=== PATIENT | male | born 1960 | race Caucasian/White ===

== ENCOUNTER 2017-09-21 14:06 | Inpatient (IN) ==
[2017-09-21] MEDS ORDERED: Ipratropium/Albuterol Neb 3 ML IH ONE (14:09)
--- NOTE | 2017-09-21 14:12 | Emergency Department Note ---
Disposition Clinical Impression: Community acquired pneumonia Qualifiers: Laterality: right Lung location: unspecified part of lung Qualified Code(s): J18.9 - Pneumonia, unspecified organism Disposition: Admitted As Inpatient Condition: Fair Referrals: Bud Nunez Jr, MD [Primary Care Provider] - Forms: ED Satisfaction Letter Time of Disposition: 15:28 SOB HPI - General Chief Complaint: ED Shortness of Breath/Dyspnea Stated Complaint: JEREMIAH Time Seen by Provider: 09/21/17 14:09 Source: patient, EMS Mode of arrival: EMS Limitations: no limitations Nursing Notes Reviewed: Yes Vital Signs Reviewed: Yes - History of Present Illness 56-year-old male who complains of increasing shortness of breath. Patient has a history of stage IV lung cancer with metastases to the liver. Patient is followed at the [facility]. Pt Subjective Complaint: shortness of breath Onset (ago): day(s) (3) Context: other (Street lung cancer) Worsens with: exertion Known history of: other (Cancer) Associated symptoms: Denies: chest pain, syncope Treatment prior to arrival: none - Related Data Home Medications Medication Instructions Recorded Confirmed Alprazolam [Alprazolam Xr] 0.5 mg PO Q4HR PRN 06/08/17 06/08/17 Aspirin [Lo-Dose Aspirin EC] 81 mg PO DAILY 06/08/17 06/08/17 Carvedilol 12.5 mg PO BID 06/08/17 06/08/17 Cyclobenzaprine [Flexeril] 10 mg PO HS 06/08/17 06/08/17 Morphine Sulfate [Arymo ER] 30 mg PO BID 06/08/17 06/08/17 Multivitamin [One Daily Essential] 1 each PO DAILY 06/08/17 06/08/17 Nabumetone 750 mg PO BID 06/08/17 06/08/17 OxyCODONE Immed Rel [Roxicodone 15 15 mg PO Q6HR PRN 06/08/17 06/08/17 MG] Simvastatin [Zocor] 40 mg PO HS 06/08/17 06/08/17 Allergies Allergy/AdvReac Type Severity Reaction Status Date / Time ceftriaxone [From Rocephin] Allergy Hives Verified 06/08/17 21:10 codeine Allergy Hives Verified 06/08/17 21:10 All systems ED: reviewed and negative except as stated. Constitutional: Denies: fever, chills, weakness, weight change Eyes: Denies: eye pain, eye discharge, vision change ENT ED: Denies: ear pain, throat pain, dental pain, hearing loss, epistaxis, congestion, dysphagia Cardiovascular: Denies: chest pain, palpitations, dyspnea on exertion, edema, syncope Respiratory: Reports: cough, dyspnea. Denies: wheezes, hemoptysis, stridor Gastrointestinal: Denies: abdominal pain, nausea, vomiting, diarrhea, constipation, hematemesis, melena, hematochezia Genitourinary: Denies: urgency, dysuria, frequency, hematuria Musculoskeletal: Denies: back pain, neck pain, arthralgia, myalgia Integumentary: Denies: rash, abrasion, lesions Neurological: Denies: headache, weakness, numbness, paresthesias, confusion, abnormal gait, vertigo Psychiatric: Denies: anxiety, depression, suicidal thoughts, homicidal thoughts , auditory hallucinations, visual hallucinations Endocrine: Denies: fatigue Hematological/Lymphatic: Denies: easy bleeding, easy bruising Allergic/Immunologic: Denies: facial swelling, urticaria Past Medical History - Past Medical History Medical history: Reports: hyperlipidemia, hypertension, myocardial infarction Psychiatric history: Reports: no psych history - Social History Smoking Status: Current every day smoker Smokeless Tobacco Status: No Alcohol use: Reports: rarely Drug use: Reports: marijuana Physical Exam - General Limitations: no limitations General appearance: alert, in no apparent distress - Head Head exam: atraumatic, normocephalic, normal inspection - Eye Eye exam: Present: normal appearance, PERRL, EOMI - Expanded Eye Exam Pupils: Left: reactive - ENT ENT exam: normal exam, normal oropharynx, mucous membranes moist - Expanded ENT Exam External ear exam: Present: normal external inspection Mouth exam: Present: normal external inspection Teeth exam: Present: normal inspection Throat exam: Present: normal inspection - Neck Neck exam: Present: normal inspection, full ROM, trachea midline - Chest Chest inspection: Present: normal inspection, symmetric chest wall rise - Respiratory Respiratory exam: Present: normal lung sounds bilaterally - Cardiovascular Cardiovascular exam: Present: regular rate, normal rhythm, normal heart sounds - Abdominal Exam Abdominal exam: Present: soft, Non-Tender. Absent: tenderness, distention, guarding, rebound, rigidity - Extremities Exam Extremities exam: Present: normal inspection, full ROM. Absent: tenderness, pedal edema - Expanded Upper Extremity Exam Shoulder exam: Present: normal inspection, full ROM Arm exam: Present: normal inspection, full ROM Elbow exam: Present: normal inspection, full ROM Forearm/Wrist exam: Present: normal inspection, full ROM Hand exam: Present: normal inspection, full ROM Vascular exam: Normal: capillary refill, radial pulse - Expanded Lower Extremity Exam Hip/Pelvis exam: Present: normal inspection, full ROM Upper leg exam: Present: normal inspection, full ROM Knee exam: Present: normal inspection, full ROM Lower leg exam: Present: normal inspection, full ROM Ankle exam: Present: normal inspection, full ROM Foot/toe exam: Present: normal inspection, full ROM Neurovascular/Tendon exam: Absent: motor deficit, sensory deficit, tendon deficit - Back Exam Back exam: Present: normal inspection, full ROM. Absent: tenderness - Neurological Exam Neurological exam: Present: alert, oriented X3 - Expanded Neurological Exam Patient oriented to: Present: person, place, time Coma Scale Eye Opening: Spontaneous Coma Scale Motor Response: Obeys Commands Coma Scale Verbal Response: Oriented Coma Scale Total: 15 - Psychiatric Psychiatric exam: Present: normal affect, normal mood - Skin Skin exam: Present: warm, dry, intact, normal color Course Vital Signs Temperature 98.6 F 09/21/17 14:07 Pulse Rate 80 09/21/17 14:07 Respiratory Rate 18 09/21/17 14:07 Blood Pressure 153/93 09/21/17 14:07 O2 Sat by Pulse Oximetry 89 09/21/17 14:07 Temperature 98.6 F 09/21/17 14:07 Pulse Rate 75 09/21/17 15:58 Respiratory Rate 17 09/21/17 15:58 Blood Pressure 149/96 09/21/17 15:58 O2 Sat by Pulse Oximetry 94 09/21/17 15:58 Oxygen Delivery Oxygen Delivery Simple Mask Shortness of Breath/Dyspnea - Lab Data Lab results reviewed: Yes I reviewed the patient's lab results. Result diagrams: 09/21/17 14:38 09/21/17 14:38 Lab Results 09/21/17 09/21/17 09/21/17 Range/Units 14:38 14:38 14:38 WBC 14.1 H (4.3-11.1) K/mcL RBC 2.90 L (4.19-5.50) M/mcL Hgb 9.7 L (12.9-16.9) g/dL Hct 31.7 L (37.5-50.1) % MCV 109.3 H (83.0-100.0) fL MCH 33.4 H (28.0-33.3) pg MCHC 30.6 L (31.6-35.5) g/dL RDW 22.3 H (11.5-14.5) % Plt Count 82 L (140-400) K/mcL MPV 10.4 (9.4-12.4) fL Immature Gran % 4.2 H (0-4) % Seg Neutrophils % 79.4 % Lymphocytes % 10.3 % Monocytes % 5.7 % Eosinophils % 0.0 % Basophils % 0.4 % Neutrophils # 11.2 H (1.6-8.9) K/mcL Lymphocytes # 1.5 (0.6-4.6) K/mcL Monocytes # 0.8 (0.0-1.3) K/mcL Eosinophils # 0.0 (0.0-0.6) K/mcL Basophils # 0.1 (0.0-0.2) K/mcL Nucleated RBCs/100 WBC 1.2 H (0) /100 WBC Platelet Estimate Decreased L (Normal) Immature Plt Fraction 7.8 H (1.1-6.1) % Polychromasia 1+ A (Not Present) Anisocytosis 2+ A (Not Present) Tear Drop Cells 1+ A (Not Present) Sodium 134 L (136-145) mEq/L Potassium 3.4 L (3.5-4.5) mEq/L Chloride 95 L (98-109) mEq/L Carbon Dioxide 27 (19-29) mEq/L BUN 12 (8-26) mg/dL Creatinine 0.59 L (0.72-1.25) mg/dL Est GFR ( Amer) > 60 (> 60) Est GFR (Non-Af Amer) > 60 (> 60) BUN/Creatinine Ratio 20 (6-26) Glucose 328 H (70-99) mg/dL Calculated Osmolality 291 (280-300) Lactic Acid 2.1 (0.5-2.2) mmol/L Calcium 8.4 L (8.6-10.8) mg/dL Troponin I (0-0.03) ng/mL B-Natriuretic Peptide (0-100) pg/mL 09/21/17 09/21/17 Range/Units 14:38 14:38 WBC (4.3-11.1) K/mcL RBC (4.19-5.50) M/mcL Hgb (12.9-16.9) g/dL Hct (37.5-50.1) % MCV (83.0-100.0) fL MCH (28.0-33.3) pg MCHC (31.6-35.5) g/dL RDW (11.5-14.5) % Plt Count (140-400) K/mcL MPV (9.4-12.4) fL Immature Gran % (0-4) % Seg Neutrophils % % Lymphocytes % % Monocytes % % Eosinophils % % Basophils % % Neutrophils # (1.6-8.9) K/mcL Lymphocytes # (0.6-4.6) K/mcL Monocytes # (0.0-1.3) K/mcL Eosinophils # (0.0-0.6) K/mcL Basophils # (0.0-0.2) K/mcL Nucleated RBCs/100 WBC (0) /100 WBC Platelet Estimate (Normal) Immature Plt Fraction (1.1-6.1) % Polychromasia (Not Present) Anisocytosis (Not Present) Tear Drop Cells (Not Present) Sodium (136-145) mEq/L Potassium (3.5-4.5) mEq/L Chloride (98-109) mEq/L Carbon Dioxide (19-29) mEq/L BUN (8-26) mg/dL Creatinine (0.72-1.25) mg/dL Est GFR ( Amer) (> 60) Est GFR (Non-Af Amer) (> 60) BUN/Creatinine Ratio (6-26) Glucose (70-99) mg/dL Calculated Osmolality (280-300) Lactic Acid (0.5-2.2) mmol/L Calcium (8.6-10.8) mg/dL Troponin I 0.00 (0-0.03) ng/mL B-Natriuretic Peptide 114 H (0-100) pg/mL - Radiology Data Radiology results reviewed: Yes I reviewed the patient's radiology results. Chest X-Ray 11/26/17 14:09 IMPRESSION: Findings as above concerning for infection. Small to moderate pleural effusion. D/ / Vida Geller MD / Vida Geller MD Interpreting Provider: Vida Geller MD - EKG Data EKG attestation: Yes I reviewed and interpreted this EKG. EKG shows normal: Reports: sinus rhythm Rate: Reports: normal Rhythm: Reports: NSR When compared to previous EKG there are: no significant changes (Unchanged from 06/08/2017) Interpretation: Reports: no acute changes
[2017-09-21 14:45] LABS: Basophils % 0.4 %; Red Cell Distribution Width 22.3 % (11.5-14.5)
[2017-09-21 14:47] LABS: Basophils # 0.1 K/mcL (0.0-0.2); Hematocrit 31.7 % (37.5-50.1); Hemoglobin 9.7 g/dL (12.9-16.9); Immature Granulocytes % 4.2 % (0-4); Immature Platelets 7.8 % (1.1-6.1); Lymphocytes # 1.5 K/mcL (0.6-4.6); Lymphocytes % 10.3 %; Mean Corpuscular HGB Conc 30.6 g/dL (31.6-35.5); Mean Corpuscular Hemoglobin 33.4 pg (28.0-33.3); Mean Corpuscular Volume 109.3 fL (83.0-100.0); Mean Platelet Volume 10.4 fL (9.4-12.4); Monocytes # 0.8 K/mcL (0.0-1.3); Monocytes % 5.7 %; Neutrophils # 11.2 K/mcL (1.6-8.9); Nucleated Red Blood Cells 1.2 /100 WBC (0); Segmented Neutrophils % 79.4 %
[2017-09-21 14:58] LABS: BUN/Creatinine Ratio 20 (6-26); Blood Urea Nitrogen 12 mg/dL (8-26); Calcium 8.4 mg/dL (8.6-10.8); Carbon Dioxide 27 mEq/L (19-29); Chloride 95 mEq/L (98-109); Glucose 328 mg/dL (70-99); Osmolality,Calculated 291 (280-300); Potassium 3.4 mEq/L (3.5-4.5); Sodium 134 mEq/L (136-145); eGFR For African Americans > 60 (> 60); eGFR For Non-African Americans > 60 (> 60)
[2017-09-21 15:08] LABS: Platelet Count 82 K/mcL (140-400)
[2017-09-21 15:10] LABS: Anisocytosis 2+ (Not Present); Platelet Estimate Decreased (Normal)
[2017-09-21 15:11] LABS: Polychromasia 1+ (Not Present); Tear Drop Cells 1+ (Not Present)
[2017-09-21] MEDS ORDERED: Levofloxacin 750 MG/150 ML 750 MG/150 ML BAG IVPB STA (15:28)
--- NOTE | 2017-09-21 17:34 | Internal Med History&Physical ---
Date of Encounter: 09/21/17 Time of Encounter: 17:26 Assessment and Plan (1) Community acquired pneumonia Current visit: Yes Status: Acute Patient presented to ER with productive cough, WBC was elevated, chest x-ray shows right diffuse airspace disease. He has history of lung cancer mainly the right side, likely obstructive pneumonia. His last admission was May 2017. We will cover was Zosyn and levaquin Qualifiers: Laterality: right Lung location: unspecified part of lung Qualified Code( s): J18.9 - Pneumonia, unspecified organism (2) Leg swelling Current visit: Yes Status: Acute Patient has severe bilateral leg swelling, he has active lung cancer, will check a Doppler to rule out DVT. He also has CAD supposed to have echocardiogram as outpatient. we will order echocardiogram to rule out heart failure. (3) Stage 4 lung cancer Current visit: Yes Status: Chronic Follow-up at [facility] Qualifiers: Laterality: right Qualified Code(s): C34.91 - Malignant neoplasm of unspecified part of right bronchus or lung (4) CAD (coronary artery disease) Current visit: Yes Status: Chronic Patient had MRI state opposes stents placement in 2010, continue home medications Qualifiers: Coronary Disease-Associated Artery/Lesion type: [place] artery [place] vs. transplanted heart: [place] heart Associated angina: without angina Qualified Code(s): I25.10 - Atherosclerotic heart disease of [place] coronary artery without angina pectoris (5) Hypertension Current visit: Yes Status: Chronic BP is well controlled continue home medication Qualifiers: Hypertension type: essential hypertension Qualified Code(s): I10 - Essential (primary) hypertension (6) Hypokalemia Current visit: Yes Status: Acute We will replace by IV and oral follow-up tomorrow a.m. Internal Medicine - H&P: HPI Chief complaint: SOB Admitted From: Emergency Dept Plans for Post Hospital Care: Transfer [facility] Facility History of present illness: Mr. Verma is a 56 year old male who has history of lung cancer, hypertension hyperlipidemia, CAD status post stents, presenting emergency room for shortness of breath, productive cough chest pain for few days. Patient was diagnosed stage IV lung cancer on 06/08/2017 he has been seen by [facility]. He received a chemotherapy 4 weeks ago. Patient developed shortness of breath and the productive cough 4 days ago and he become extremely weak and had bilateral leg swellings. He also c/o chest pains located in the mid of chest, sharp 5 out of 10, constant. He denies fever or chills. He emergency room, he was find hypoxia 86% on room air. No temperature was documented. Chest x-ray showed scattered patchy airspace disease throughout the right long. Patient last admission was May 2017. Ongoing chemotherapy. In setting of stage IV lung cancer. We will treat as obstructive pneumonia, with Zosyn and levaquin. Past Med Surg Social Fam HX - Past Medical History Medical history: hyperlipidemia, hypertension, myocardial infarction Psychiatric history: no psych history - Social History Smoking Status: Former smoker Smokeless Tobacco Status: No Alcohol use: rarely Drug use: marijuana Internal Medicine - H&P: Meds Alprazolam [Alprazolam Xr] 0.5 mg PO Q4HR PRN 06/08/17 [History] Aspirin [Lo-Dose Aspirin EC] 81 mg PO DAILY 06/08/17 [History] Carvedilol 12.5 mg PO BID 06/08/17 [History] Cyclobenzaprine [Flexeril] 10 mg PO BID 06/08/17 [History] Morphine Sulfate [Arymo ER] 30 mg PO TID 06/08/17 [History] Multivitamin [One Daily Essential] 1 tab PO DAILY 06/08/17 [History] Nabumetone 750 mg PO BID 06/08/17 [History] OxyCODONE Immed Rel [Roxicodone 15 MG] 15 mg PO Q3H PRN 06/08/17 [History] Simvastatin [Zocor] 40 mg PO HS 06/08/17 [History] Lisinopril-HCTZ 10-12.5 [Prinzide 10-12.5] 1 tab PO DAILY 09/21/17 [History] 3 Allergy/AdvReac Type Severity Reaction Status Date / Time ceftriaxone [From Rocephin] Allergy Hives Verified 06/08/17 21:10 codeine Allergy Hives Verified 06/08/17 21:10 All Systems PM: A 10-system review of systems was performed and is negative for pertinent findings except as documented above in the HPI. - Constitutional Constitutional: anorexia, weakness - EENT Eyes: no change in vision, no discharge, no pain, no photophobia Ears: no ear discharge, no ear pain, no tinnitus Nose, mouth and throat: no dysphagia, no nasal discharge, no neck pain, no sore throat - Cardiovascular Cardiovascular ROS IM: no chest pain, no diaphoresis, no dyspnea, no lightheadedness, no palpitations, no syncope - Respiratory Respiratory: cough, dyspnea, excessive phlegm production, pain with cough - Gastrointestinal Gastrointestinal: no abdominal pain, no diarrhea, no hematemesis, no hematochezia, no melena, no nausea, no vomiting - Genitourinary Genitourinary ROS male: as per HPI - Musculoskeletal Musculoskeletal ROS IM: muscle weakness, no numbness, no tingling - Integumentary Integumentary IM: no rash, no unusual bruising - Neurological Neurological ROS: no confusion, no convulsions, no focal weakness, no numbness, no tingling, no tremor(s) - Psychiatric Additional comments: normal mood, denies sucidal - Endocrine Endocrine IM: fatigue - Hematologic/Lymphatic Hematologic/Lymphatic: no easy bruising - Constitutional Vitals: Temp Pulse Resp BP Pulse Ox 98.6 F 88 18 151/97 94 09/21/17 14:07 09/21/17 17:07 09/21/17 17:07 09/21/17 17:07 09/21/17 17:07 CONSTITUTIONAL: Patient appears as an age appropriate male well developed, in no acute distress. EYES Clear sclerae, bilateral pupils are equal, reactive to light and accommodation. Extraocular movements are intact RESPIRATORY: No accessory muscle use, right lung has diffuse crackles/rales. CARDIOVASCULAR: Regular heart rate, normal S1 and S2, no murmurs GASTROINTESTINAL: bowel sounds present, soft, no tenderness. No hepatosplenomegaly. No bilateral CVA tenderness MUSCULOSKELETAL: Joints in normal range of motion, no clubbing, ++++ edema, no cyanosis. Bilateral peripheral pulses 2+ LYMPHATIC no lymphadenopathy in neck, groin and axilla bilaterally, no thyromegaly. NEUROLOGIC: CN II to XII are grossly intact, no focal neurological deficit. Deep tendon reflexes 2+ bilaterally. Normal light touch sensation to upper and lower extremity PSYCHIATRIC: Oriented x3, with good insight, mood is euthymic. No hallucinations or delusions. SKIN: Skin warm and dry, no rashes, no open wound. Internal Med - H&P Results - Labs CBC & Chem 7: 09/21/17 14:38 09/21/17 14:38
[2017-09-21] MEDS ORDERED: Acetaminophen 325 MG TABLET PO PRN (17:53)
[2017-09-21] MEDS ORDERED: *HR* OxyCODONE/APAP 5/325 TABLET PO ONE (19:00)
[2017-09-21] MEDS: *HR* OxyCODONE Immed Rel 15 MG TABLET PO PRN (21:36)
[2017-09-21] MEDS: Aspirin Enteric Coated 81 MG Tablet PO SCH (22:16)
[2017-09-21] MEDS ORDERED: ALPRAZolam 0.5 MG TABLET PO PRN (22:40)
[2017-09-22 03:16] LABS: Hematocrit 30.9 % (37.5-50.1); Hemoglobin 9.4 g/dL (12.9-16.9); Immature Platelets 6.7 % (1.1-6.1); Mean Corpuscular HGB Conc 30.4 g/dL (31.6-35.5); Mean Corpuscular Hemoglobin 33.3 pg (28.0-33.3); Mean Corpuscular Volume 109.6 fL (83.0-100.0); Mean Platelet Volume 11.6 fL (9.4-12.4); Red Blood Count 2.82 M/mcL (4.19-5.50); Red Cell Distribution Width 22.1 % (11.5-14.5)
[2017-09-22 03:30] LABS: BUN/Creatinine Ratio 21 (6-26); Blood Urea Nitrogen 11 mg/dL (8-26); Calcium 8.7 mg/dL (8.6-10.8); Carbon Dioxide 30 mEq/L (19-29); Chloride 95 mEq/L (98-109); Glucose 267 mg/dL (70-99); Osmolality,Calculated 289 (280-300); Sodium 135 mEq/L (136-145); eGFR For African Americans > 60 (> 60); eGFR For Non-African Americans > 60 (> 60)
[2017-09-22 04:29] LABS: Potassium 3.2 mEq/L (3.5-4.5)
[2017-09-22] MEDS: *HR* OxyCODONE Immed Rel 15 MG TABLET PO PRN ×3 (05:57→16:25)
[2017-09-22] MEDS: Aspirin Enteric Coated 81 MG Tablet PO SCH (09:42)
[2017-09-22] MEDS: Multivit/Ca/Min/Fe/FA 1 TAB TABLET PO SCH (09:49)
[2017-09-22] MEDS: Levofloxacin 750 MG/150 ML 750 MG/150 ML BAG IVPB SCH (09:50)
--- NOTE | 2017-09-22 11:31 | Electrocardiograph Report ---
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
[2017-09-22] MEDS ORDERED: D5% in Water 1,000 ML IVC PRN (11:41)
[2017-09-22] MEDS ORDERED: *HR* Dextrose 50 % in Water (Syg) 50 ML SYRINGE IVP PRN (11:41)
[2017-09-22] MEDS ORDERED: Dextrose Gel 15 GM PO PRN ×2 (11:41)
[2017-09-22 12:31] LABS: Hemoglobin A1C 9.4 %
[2017-09-22] MEDS: *HR* Enoxaparin 40 MG/0.4 ML SYRINGE SQ SCH (13:36)
[2017-09-22] MEDS: *HR* Morphine Sulfate SR (12 HR) 30 MG TABLET.ER PO SCH ×3 (13:36→20:48)
--- NOTE | 2017-09-22 13:37 | Palliative - Consult Note ---
<Madhu Mcarthur - Last Filed: 09/22/17 13:33> Date of Encounter: 09/22/17 Time of Encounter: 13:33 - Assessment and Plan (1) Counseling regarding advanced directives and goals of care Current Visit: Yes Status: Acute Assessment and plan: - Likely discussion with patient regarding goals of care and CODE STATUS - Patient states that he would like to be DNR CCA DNI - Sons are present at bedside and state that he has been very clear about this decision - Patient has a medical power of divorce attorney and his , who is not present at bedside at this time - Living will in place. - Patient's goals of care at this hospital visit our treatment with antibiotics and supplemental oxygen - All questions from patient and family were answered at time of interview (2) Community acquired pneumonia Current Visit: Yes Status: Acute Assessment and plan: - Patient reports fevers, chills, productive cough - Chest x-ray showing right-sided patchy opacities suggestive of possible infection - Further management per primary team - Shortness of breath under control per patient. Speaking in full sentences at time of interview on room air Qualifiers: Laterality: right Lung location: unspecified part of lung Qualified Code( s): J18.9 - Pneumonia, unspecified organism (3) Stage 4 lung cancer Current Visit: Yes Status: Chronic Assessment and plan: - Patient receiving active chemotherapy at the [facility] - CODE STATUS and goals of care as outlined above Qualifiers: Laterality: right Qualified Code(s): C34.91 - Malignant neoplasm of unspecified part of right bronchus or lung (4) Hypertension Current Visit: Yes Status: Chronic Assessment and plan: - Elevated at time of admission in 160s systolic - Management per primary team Qualifiers: Hypertension type: essential hypertension Qualified Code(s): I10 - Essential (primary) hypertension Palliative-CN HPI - Data of Consult Patient: new to practice Consult date: 09/22/17 Requesting Physician: Jayro Rendon Primary Care Provider: Bud Nunez Jr, MD - Consult Narrative Palliative Care/Comfort Measures: Palliative care Reason for consult: Code status History of present illness: Mr. Verma is a 56 year old male with past medical history of stage IV lung cancer presented to emergency room with chief complaint of shortness of breath, productive cough, fevers, chills. He was admitted for pneumonia. Family is present in the room, including sons, during time of interview. Palliative care was consulted for further clarification on his CODE STATUS. Patient states that in the event of cardiopulmonary arrest he would not like her suggestive measures and confirms his CODE STATUS as DNR CCA DNI. Patient states that his pain is currently under control with his home medications, he denies any symptoms of nausea, vomiting, bowel movements are normal for patient, shortness of breath is under control. He states that during the course of hospitalization he is agreeable to antibiotics, supplemental oxygen. Patient states that he does have a medical power of divorce attorney which is his . He states he has discussed his goals of care with his and she is aware of his wishes should he not be able to communicate them in the future. He also has filled out a living well. Patient was given the opportunity to ask questions. CC: Jayro Rendon Past Med Surg Social Fam HX - Past Medical History Medical history: cancer, hyperlipidemia, hypertension, myocardial infarction Psychiatric history: no psych history - Past Surgical History Surgical History: appendectomy, cholecystectomy - Social History Smoking Status: Former smoker Smokeless Tobacco Status: No Alcohol use: rarely Drug use: marijuana Medications and Allergies Alprazolam [Alprazolam Xr] 0.5 mg PO Q4HR PRN 06/08/17 [History] Aspirin [Lo-Dose Aspirin EC] 81 mg PO DAILY 06/08/17 [History] Carvedilol 12.5 mg PO BID 06/08/17 [History] Cyclobenzaprine [Flexeril] 10 mg PO BID 06/08/17 [History] Morphine Sulfate [Arymo ER] 30 mg PO TID 06/08/17 [History] Multivitamin [One Daily Essential] 1 tab PO DAILY 06/08/17 [History] Nabumetone 750 mg PO BID 06/08/17 [History] OxyCODONE Immed Rel [Roxicodone 15 MG] 15 mg PO Q3H PRN 06/08/17 [History] Simvastatin [Zocor] 40 mg PO HS 06/08/17 [History] Lisinopril-HCTZ 10-12.5 [Prinzide 10-12.5] 1 tab PO DAILY 09/21/17 [History] 3 Allergy/AdvReac Type Severity Reaction Status Date / Time ceftriaxone [From Rocephin] Allergy Hives Verified 06/08/17 21:10 codeine Allergy Hives Verified 06/08/17 21:10 - Constitutional Constitutional ROS PAL: chills, fatigue, fever(s), lethargy - Cardiovascular Cardiovascular ROS: no chest pain - Respiratory Respiratory: cough, dyspnea, dyspnea on exertion, change in phlegm color - Gastrointestinal Gastrointestinal: no constipation, no loose stools, no nausea, no vomiting Palliative Care-Exam - Constitutional Vitals: Temp Pulse Resp BP Pulse Ox 97.4 F L 78 16 169/105 91 09/22/17 12:24 09/22/17 12:24 09/22/17 12:24 09/22/17 12:24 09/22/17 12:24 Exam: Gen.: Vitals noted. Mild distress. Resting comfortably, however appears lethargic. AAOx3 Cardiac: Mildly tachycardic. RRR, no murmur, +S1/S2 Pulmonary: Shallow breathing, mild rales on left. no wheezes or rhonchi, equal chest expansion Abdomen: soft, nontender, BS noted, no guarding Extremities: no BLE edema, nontender calf, no cyanosis or clubbing Neuro: A&Ox3, moves all extremities, no focal deficits Psych: Appropriate mood and behavior Internal Medicine - CN: Reslt - Labs CBC & Chem 7: 09/22/17 02:34 09/22/17 02:34 Labs: Short CBC 09/22/17 Range/Units 02:34 WBC 12.5 H (4.3-11.1) K/mcL Hgb 9.4 L (12.9-16.9) g/dL Hct 30.9 L (37.5-50.1) % Plt Count 70 L (140-400) K/mcL BMP 09/22/17 02:34 Sodium 135 L Potassium 3.2 L Chloride 95 L Carbon Dioxide 30 H BUN 11 Creatinine 0.53 L Glucose 267 H Calcium 8.7 Cardiac Enzymes 09/21/17 Range/Units 21:02 Troponin I 0.00 (0-0.03) ng/mL - Impressions Impressions Echocardiogram 09/22/17 17:58 Impressions: Endocardium not well visualized and an accurate LVEF cannot be determined. Grossly, overall LVEF appears to be normal. Mild segmental left ventricular systolic dysfunction involving the septum. Mild left ventricular diastolic dysfunction. Normal right ventricular structure and function. No evidence of pulmonary hypertension. No significant valvular dysfunction. Recommend a repeat limited study with Definity contrast for better evaluation of LV function. Findings: Study Quality * Technically sub-optimal due to poor echocardiographic windows. ECG Findings * Normal sinus rhythm. Left Ventricle * Endocardium not well visualized and an accurate LVEF cannot be determined. Grossly, overall LVEF appears to be normal. * Mild segmental left ventricular systolic dysfunction involving the septum. * Mild left ventricular diastolic dysfunction. Right Ventricle * Normal right ventricular structure and function. Left Atrium * Normal left atrial size. Right Atrium * Normal right atrial size. Interatrial Septum * Interatrial septum not well evaluated. Aortic Valve * Aortic valve not well visualized. * No aortic regurgitation. * No aortic stenosis. Mitral Valve * Normal mitral valve structure and function. * No mitral regurgitation. * No mitral stenosis. Tricuspid Valve * Normal tricuspid valve structure and function. * Trace tricuspid regurgitation. * No evidence of pulmonary hypertension. Pulmonic Valve * Pulmonic valve is not well visualized. * No pulmonic regurgitation. Aorta * Normally sized aortic root. Pericardium * The pericardium appears normal. IVC * Normal IVC dimensions and inspiratory collapse. Pulmonary Artery * Normal visualized portions of the main pulmonary artery. Consult Discharge Plan - Plan Referrals: Bud Nunez Jr, MD [Primary Care Provider] - Palliative Quality Palliative Quality: Screen for Code Status: Yes, Screen for Goals of Care: Yes, Screen for Pain: Yes, If Pain Regimen Started, Initiate Bowel Regimen: Yes, Screen for Nausea/Vomitting: Yes Code Status: 09/21/17 18:01 CODE [Resuscitation Status: Active] [RES] Routine Comment: Resuscitation Status: Full Code <Anish Rosales Maya - Last Filed: 09/22/17 15:26> Date of Encounter: 09/22/17 Palliative-CN HPI - Data of Consult Requesting Physician: Jayro Rendon Primary Care Provider: Bud Nunez Jr, MD - Consult Narrative History of present illness: Mr. Verma is a 56 year old male CC: Jayro Rendon Palliative Care-Exam - Constitutional Vitals: Temp Pulse Resp BP Pulse Ox 98.3 F 63 16 160/90 96 09/22/17 15:17 09/22/17 15:17 09/22/17 15:17 09/22/17 15:17 09/22/17 15:17 Internal Medicine - CN: Reslt - Labs CBC & Chem 7: 09/22/17 02:34 09/22/17 02:34 Labs: Short CBC 09/22/17 Range/Units 02:34 WBC 12.5 H (4.3-11.1) K/mcL Hgb 9.4 L (12.9-16.9) g/dL Hct 30.9 L (37.5-50.1) % Plt Count 70 L (140-400) K/mcL BMP 09/22/17 02:34 Sodium 135 L Potassium 3.2 L Chloride 95 L Carbon Dioxide 30 H BUN 11 Creatinine 0.53 L Glucose 267 H Calcium 8.7 Cardiac Enzymes 09/21/17 Range/Units 21:02 Troponin I 0.00 (0-0.03) ng/mL - Impressions Impressions Echocardiogram 09/22/17 17:58 Impressions: Endocardium not well visualized and an accurate LVEF cannot be determined. Grossly, overall LVEF appears to be normal. Mild segmental left ventricular systolic dysfunction involving the septum. Mild left ventricular diastolic dysfunction. Normal right ventricular structure and function. No evidence of pulmonary hypertension. No significant valvular dysfunction. Recommend a repeat limited study with Definity contrast for better evaluation of LV function. Findings: Study Quality * Technically sub-optimal due to poor echocardiographic windows. ECG Findings * Normal sinus rhythm. Left Ventricle * Endocardium not well visualized and an accurate LVEF cannot be determined. Grossly, overall LVEF appears to be normal. * Mild segmental left ventricular systolic dysfunction involving the septum. * Mild left ventricular diastolic dysfunction. Right Ventricle * Normal right ventricular structure and function. Left Atrium * Normal left atrial size. Right Atrium * Normal right atrial size. Interatrial Septum * Interatrial septum not well evaluated. Aortic Valve * Aortic valve not well visualized. * No aortic regurgitation. * No aortic stenosis. Mitral Valve * Normal mitral valve structure and function. * No mitral regurgitation. * No mitral stenosis. Tricuspid Valve * Normal tricuspid valve structure and function. * Trace tricuspid regurgitation. * No evidence of pulmonary hypertension. Pulmonic Valve * Pulmonic valve is not well visualized. * No pulmonic regurgitation. Aorta * Normally sized aortic root. Pericardium * The pericardium appears normal. IVC * Normal IVC dimensions and inspiratory collapse. Pulmonary Artery * Normal visualized portions of the main pulmonary artery. - Attending Attestation I examined this patient and my medical decision-making was reviewed with the Resident Physician. I agree with the documented findings, disposition and treatment plan as described except to the extent set forth below. Palliative Quality Code Status: 09/21/17 18:01 CODE [Resuscitation Status: Active] [RES] Routine Comment: Resuscitation Status: Full Code 09/22/17 13:33 Resuscitation Status: Active [RES] Routine Comment: Resuscitation Status: [id number]
[2017-09-22] MEDS: Ipratropium/Albuterol Neb 3 ML IH SCH ×3 (16:06→23:57)
[2017-09-22] MEDS: Insulin LISPRO 300 UNITS/3 ML VIAL SQ SCH ×2 (17:11→20:53)
[2017-09-22] MEDS: Piperacillin/Tazobactam 3.375 GM in 0.9 % Sodium Chloride Mini Bag 100 ML IVPB SCH (17:13)
--- NOTE | 2017-09-22 19:38 | Internal Med Progress Note ---
Date of Encounter: 09/22/17 Time of Encounter: 11:00 - Assessment and plan (1) Community acquired pneumonia Current Visit: Yes Status: Acute Assessment and plan: Continue IV Zosyn and IV Levaquin Qualifiers: Laterality: right Lung location: unspecified part of lung Qualified Code( s): J18.9 - Pneumonia, unspecified organism (2) Stage 4 lung cancer Current Visit: Yes Status: Chronic Assessment and plan: Patient with known stage IV lung cancer Goals of care will be discussed with palliative care Qualifiers: Laterality: right Qualified Code(s): C34.91 - Malignant neoplasm of unspecified part of right bronchus or lung (3) Counseling regarding advanced directives and goals of care Current Visit: Yes Status: Acute Assessment and plan: -Palliative care consulted - Subjective Interval history: No acute events overnight - Constitutional Vitals: Temp Pulse Resp BP Pulse Ox 98.3 F 63 16 160/90 95 09/22/17 15:17 09/22/17 15:17 09/22/17 16:09 09/22/17 15:17 09/22/17 16:09 - Respiratory Respiratory exam: Present: CTAB. Absent: accessory muscle use, rales, rhonchi, wheezes - Cardiovascular Cardiovascular exam: Present: RRR, +S1, +S2. Absent: diastolic murmur, gallop, rubs, systolic murmur Internal Medicine: Result - Labs CBC & Chem 7: 09/22/17 02:34 09/22/17 02:34 Labs: Short CBC 09/22/17 Range/Units 02:34 WBC 12.5 H (4.3-11.1) K/mcL Hgb 9.4 L (12.9-16.9) g/dL Hct 30.9 L (37.5-50.1) % Plt Count 70 L (140-400) K/mcL BMP 09/22/17 02:34 Sodium 135 L Potassium 3.2 L Chloride 95 L Carbon Dioxide 30 H BUN 11 Creatinine 0.53 L Glucose 267 H Calcium 8.7 Cardiac Enzymes 09/21/17 Range/Units 21:02 Troponin I 0.00 (0-0.03) ng/mL - Impressions Impressions Echocardiogram 09/22/17 17:58 Impressions: Endocardium not well visualized and an accurate LVEF cannot be determined. Grossly, overall LVEF appears to be normal. Mild segmental left ventricular systolic dysfunction involving the septum. Mild left ventricular diastolic dysfunction. Normal right ventricular structure and function. No evidence of pulmonary hypertension. No significant valvular dysfunction. Recommend a repeat limited study with Definity contrast for better evaluation of LV function. Findings: Study Quality * Technically sub-optimal due to poor echocardiographic windows. ECG Findings * Normal sinus rhythm. Left Ventricle * Endocardium not well visualized and an accurate LVEF cannot be determined. Grossly, overall LVEF appears to be normal. * Mild segmental left ventricular systolic dysfunction involving the septum. * Mild left ventricular diastolic dysfunction. Right Ventricle * Normal right ventricular structure and function. Left Atrium * Normal left atrial size. Right Atrium * Normal right atrial size. Interatrial Septum * Interatrial septum not well evaluated. Aortic Valve * Aortic valve not well visualized. * No aortic regurgitation. * No aortic stenosis. Mitral Valve * Normal mitral valve structure and function. * No mitral regurgitation. * No mitral stenosis. Tricuspid Valve * Normal tricuspid valve structure and function. * Trace tricuspid regurgitation. * No evidence of pulmonary hypertension. Pulmonic Valve * Pulmonic valve is not well visualized. * No pulmonic regurgitation. Aorta * Normally sized aortic root. Pericardium * The pericardium appears normal. IVC * Normal IVC dimensions and inspiratory collapse. Pulmonary Artery * Normal visualized portions of the main pulmonary artery. Consult Discharge Plan - Plan Referrals: Bud Nunez Jr, MD [Primary Care Provider] -
[2017-09-23] MEDS: Piperacillin/Tazobactam 3.375 GM in 0.9 % Sodium Chloride Mini Bag 100 ML IVPB SCH ×2 (01:42→08:40)
[2017-09-23] MEDS: Ipratropium/Albuterol Neb 3 ML IH SCH ×5 (03:05→19:50)
[2017-09-23] MEDS: *HR* OxyCODONE Immed Rel 15 MG TABLET PO PRN ×4 (03:33→14:44)
[2017-09-23] MEDS: *HR* Enoxaparin 40 MG/0.4 ML SYRINGE SQ SCH (06:34)
[2017-09-23] MEDS: Aspirin Enteric Coated 81 MG Tablet PO SCH (08:36)
[2017-09-23] MEDS: Multivit/Ca/Min/Fe/FA 1 TAB TABLET PO SCH (08:38)
[2017-09-23] MEDS: *HR* Morphine Sulfate SR (12 HR) 30 MG TABLET.ER PO SCH ×3 (08:38→21:48)
[2017-09-23 08:39] LABS: Hematocrit 32.4 % (37.5-50.1); Red Cell Distribution Width 22.5 % (11.5-14.5)
[2017-09-23 08:41] LABS: Hemoglobin 9.8 g/dL (12.9-16.9); Immature Platelets 8.5 % (1.1-6.1); Mean Corpuscular HGB Conc 30.2 g/dL (31.6-35.5); Mean Corpuscular Hemoglobin 32.8 pg (28.0-33.3); Mean Corpuscular Volume 108.4 fL (83.0-100.0); Mean Platelet Volume 12.6 fL (9.4-12.4); Nucleated Red Blood Cells 1.2 /100 WBC (0); Red Blood Count 2.99 M/mcL (4.19-5.50)
[2017-09-23 08:42] LABS: Platelet Count 71 K/mcL (140-400)
[2017-09-23] MEDS: Insulin LISPRO 300 UNITS/3 ML VIAL SQ SCH ×4 (08:43→21:47)
[2017-09-23 08:52] LABS: BUN/Creatinine Ratio 24 (6-26); Blood Urea Nitrogen 13 mg/dL (8-26); Calcium 8.5 mg/dL (8.6-10.8); Carbon Dioxide 29 mEq/L (19-29); Chloride 99 mEq/L (98-109); Glucose 254 mg/dL (70-99); Osmolality,Calculated 297 (280-300); Potassium 3.3 mEq/L (3.5-4.5); Sodium 139 mEq/L (136-145); eGFR For African Americans > 60 (> 60); eGFR For Non-African Americans > 60 (> 60)
[2017-09-23 09:03] LABS: Lymphocytes # 1.2 K/mcL (0.6-4.6); Monocytes # 0.9 K/mcL (0.0-1.3); Neutrophils # 12.6 K/mcL (1.6-8.9)
[2017-09-23 09:04] LABS: Polychromasia 1+ (Not Present)
[2017-09-23 09:06] LABS: Basophilic Stippling 1+ (Not Present); Platelet Estimate Slight Decrease (Normal)
--- NOTE | 2017-09-23 09:22 | Palliative Progress Note ---
<Madhu Mcarthur - Last Filed: 09/23/17 11:27> Date of Encounter: 09/23/17 Time of Encounter: 09:20 - Assessment and plan (1) Counseling regarding advanced directives and goals of care Current Visit: Yes Status: Acute Assessment and plan: - Further discussion today regarding goals of care - Discussed with , who is POA - Family is still considering immunotherapy at [facility] however had questions about hospice care - Options discussed, pt would like to try further treatment with possibility of hospice down the line. - PT/OT consulted for further evaluation for post discharge needs. - SW following (2) Community acquired pneumonia Current Visit: Yes Status: Acute Assessment and plan: - Continue treatment as per primary team - Pt denies SOB, nausea, vomiting - Discussed with hospitalist, can likely go home on PO ABx once more medically stable. Qualifiers: Laterality: right Lung location: unspecified part of lung Qualified Code( s): J18.9 - Pneumonia, unspecified organism (3) Stage 4 lung cancer Current Visit: Yes Status: Chronic Assessment and plan: - Plan as above. - Mets to liver per . - Family and pt considering continuing aggressive treatment at this time. - Likely Hospice eligible if desired. Qualifiers: Laterality: right Qualified Code(s): C34.91 - Malignant neoplasm of unspecified part of right bronchus or lung (4) Hypertension Current Visit: Yes Status: Chronic Assessment and plan: Per primary team Qualifiers: Hypertension type: essential hypertension Qualified Code(s): I10 - Essential (primary) hypertension (5) Cancer associated pain Current Visit: Yes Status: Acute Assessment and plan: - Pt takes oral morphine 30 mg TID ROXANN and oxycodone 15 q3hr PRN at home. - States it controls the pain well, however there is a delay in receiving his medications. - Will continue home meds, with increase in dosing interval for PRN oxycodone to q2hr - Started bowel regimen with Senna. - Time Spent With Patient Total time spent is greater than 50% in coordination of care (as documented) at patient's floor/unit and/or counseling patient: - Subjective Interval history: Mr. Verma was seen and examined at bedside. He states he feels about the same as yesterday and reports mostly a complaint of weakness. Denies any needs at this time. No complaints of nausea, vomiting, difficulty with bowel movements. Does complain of pain. He states when de does get his meds they work well and adequately control his pain however there is a delay in getting his meds after he asks for them. We returned to the room later this afternoon and had a lengthy discussion with the family regarding further goals of care and they had questions about hospice. All questions were answered. Family and patient are still considering starting immunotherapy for his stage IV lung cancer with mets to liver. At this time we believe that patient is hospice eligible if and when he would like to stop his chemotherapy. Home health and physical therapy options were discussed as well. - Constitutional Vitals: Abnormal lab results WBC 14.7 K/mcL (4.3-11.1) H 09/23/17 08:26 RBC 2.99 M/mcL (4.19-5.50) L 09/23/17 08:26 Hgb 9.8 g/dL (12.9-16.9) L 09/23/17 08:26 Hct 32.4 % (37.5-50.1) L 09/23/17 08:26 MCV 108.4 fL (83.0-100.0) H 09/23/17 08:26 MCHC 30.2 g/dL (31.6-35.5) L 09/23/17 08:26 RDW 22.5 % (11.5-14.5) H 09/23/17 08:26 Plt Count 71 K/mcL (140-400) L 09/23/17 08:26 MPV 12.6 fL (9.4-12.4) H 09/23/17 08:26 Immature Gran % 4.2 % (0-4) H 09/21/17 14:38 Neutrophils # 12.6 K/mcL (1.6-8.9) H 09/23/17 08:26 Nucleated RBCs/100 WBC 1.2 /100 WBC (0) H 09/23/17 08:26 Platelet Estimate Slight Decrease (Normal) L 09/23/17 08:26 Immature Plt Fraction 8.5 % (1.1-6.1) H 09/23/17 08:26 Polychromasia 1+ (Not Present) A 09/23/17 08:26 Basophilic Stippling 1+ (Not Present) A 09/23/17 08:26 Anisocytosis 2+ (Not Present) A 09/21/17 14:38 Tear Drop Cells 1+ (Not Present) A 09/21/17 14:38 Potassium 3.3 mEq/L (3.5-4.5) L 09/23/17 08:26 Creatinine 0.55 mg/dL (0.72-1.25) L 09/23/17 08:26 Glucose 254 mg/dL (70-99) H 09/23/17 08:26 POC Glucose 290 (58-89) H 09/22/17 12:29 Hemoglobin A1c 9.4 % (-5.6) H 09/22/17 02:34 Calcium 8.5 mg/dL (8.6-10.8) L 09/23/17 08:26 B-Natriuretic Peptide 114 pg/mL (0-100) H 09/21/17 14:38 General appearance: Present: average body habitus, febrile, cooperative, no acute distress - Head Head exam: Present: atraumatic, normal inspection - Respiratory Respiratory exam: Present: decreased breath sounds (right). Absent: respiratory distress, wheezes - Cardiovascular Cardiovascular exam: Present: RRR, +S1, +S2. Absent: diastolic murmur, systolic murmur - Neurological Exam Neurological exam: Present: alert, oriented X3 - Skin Skin exam: Present: dry, warm Palliative Quality Palliative Quality: Screen for Code Status: Yes, Screen for Goals of Care: Yes, Screen for Pain: Yes, If Pain Regimen Started, Initiate Bowel Regimen: Yes, Screen for Nausea/Vomitting: Yes Code Status: 09/21/17 18:01 CODE [Resuscitation Status: Active] [RES] Routine Comment: Resuscitation Status: Full Code 09/22/17 13:33 Resuscitation Status: Active [RES] Routine Comment: Resuscitation Status: [id number] - Labs CBC & Chem 7: 09/23/17 08:26 09/23/17 08:26 Labs: Laboratory Results - last 24 hr 09/22/17 09/22/17 09/22/17 02:34 12:04 12:29 WBC RBC Hgb Hct MCV MCH MCHC RDW Plt Count MPV Seg Neutrophils % Band Neutrophils % Lymphocytes % Monocytes % Neutrophils # Lymphocytes # Monocytes # Nucleated RBCs/100 WBC Platelet Estimate Immature Plt Fraction Polychromasia Basophilic Stippling Sodium Potassium Chloride Carbon Dioxide BUN Creatinine Est GFR ( Amer) Est GFR (Non-Af Amer) BUN/Creatinine Ratio Glucose POC Glucose 290 H Est Mean Plasma Glucose 223 Hemoglobin A1c 9.4 H Calculated Osmolality Calcium Stool Occult Blood Negative 09/23/17 09/23/17 08:26 08:26 WBC 14.7 H RBC 2.99 L Hgb 9.8 L Hct 32.4 L MCV 108.4 H MCH 32.8 MCHC 30.2 L RDW 22.5 H Plt Count 71 L MPV 12.6 H Seg Neutrophils % 84.0 Band Neutrophils % 2.0 Lymphocytes % 8.0 Monocytes % 6.0 Neutrophils # 12.6 H Lymphocytes # 1.2 Monocytes # 0.9 Nucleated RBCs/100 WBC 1.2 H Platelet Estimate Slight Decrease L Immature Plt Fraction 8.5 H Polychromasia 1+ A Basophilic Stippling 1+ A Sodium 139 Potassium 3.3 L Chloride 99 Carbon Dioxide 29 BUN 13 Creatinine 0.55 L Est GFR ( Amer) > 60 Est GFR (Non-Af Amer) > 60 BUN/Creatinine Ratio 24 Glucose 254 H POC Glucose Est Mean Plasma Glucose Hemoglobin A1c Calculated Osmolality 297 Calcium 8.5 L Stool Occult Blood - Impressions Impressions Echocardiogram 09/22/17 17:58 Impressions: Endocardium not well visualized and an accurate LVEF cannot be determined. Grossly, overall LVEF appears to be normal. Mild segmental left ventricular systolic dysfunction involving the septum. Mild left ventricular diastolic dysfunction. Normal right ventricular structure and function. No evidence of pulmonary hypertension. No significant valvular dysfunction. Recommend a repeat limited study with Definity contrast for better evaluation of LV function. Findings: Study Quality * Technically sub-optimal due to poor echocardiographic windows. ECG Findings * Normal sinus rhythm. Left Ventricle * Endocardium not well visualized and an accurate LVEF cannot be determined. Grossly, overall LVEF appears to be normal. * Mild segmental left ventricular systolic dysfunction involving the septum. * Mild left ventricular diastolic dysfunction. Right Ventricle * Normal right ventricular structure and function. Left Atrium * Normal left atrial size. Right Atrium * Normal right atrial size. Interatrial Septum * Interatrial septum not well evaluated. Aortic Valve * Aortic valve not well visualized. * No aortic regurgitation. * No aortic stenosis. Mitral Valve * Normal mitral valve structure and function. * No mitral regurgitation. * No mitral stenosis. Tricuspid Valve * Normal tricuspid valve structure and function. * Trace tricuspid regurgitation. * No evidence of pulmonary hypertension. Pulmonic Valve * Pulmonic valve is not well visualized. * No pulmonic regurgitation. Aorta * Normally sized aortic root. Pericardium * The pericardium appears normal. IVC * Normal IVC dimensions and inspiratory collapse. Pulmonary Artery * Normal visualized portions of the main pulmonary artery. Consult Discharge Plan - Plan Referrals: Bud Nunez Jr, MD [Primary Care Provider] - <Anish Rosales - Last Filed: 09/23/17 11:58> Date of Encounter: 09/23/17 - Time Spent With Patient Total time spent is greater than 50% in coordination of care (as documented) at patient's floor/unit and/or counseling patient: - Constitutional Vitals: Abnormal lab results WBC 14.7 K/mcL (4.3-11.1) H 09/23/17 08:26 RBC 2.99 M/mcL (4.19-5.50) L 09/23/17 08:26 Hgb 9.8 g/dL (12.9-16.9) L 09/23/17 08:26 Hct 32.4 % (37.5-50.1) L 09/23/17 08:26 MCV 108.4 fL (83.0-100.0) H 09/23/17 08:26 MCHC 30.2 g/dL (31.6-35.5) L 09/23/17 08:26 RDW 22.5 % (11.5-14.5) H 09/23/17 08:26 Plt Count 71 K/mcL (140-400) L 09/23/17 08:26 MPV 12.6 fL (9.4-12.4) H 09/23/17 08:26 Immature Gran % 4.2 % (0-4) H 09/21/17 14:38 Neutrophils # 12.6 K/mcL (1.6-8.9) H 09/23/17 08:26 Nucleated RBCs/100 WBC 1.2 /100 WBC (0) H 09/23/17 08:26 Platelet Estimate Slight Decrease (Normal) L 09/23/17 08:26 Immature Plt Fraction 8.5 % (1.1-6.1) H 09/23/17 08:26 Polychromasia 1+ (Not Present) A 09/23/17 08:26 Basophilic Stippling 1+ (Not Present) A 09/23/17 08:26 Anisocytosis 2+ (Not Present) A 09/21/17 14:38 Tear Drop Cells 1+ (Not Present) A 09/21/17 14:38 Potassium 3.3 mEq/L (3.5-4.5) L 09/23/17 08:26 Creatinine 0.55 mg/dL (0.72-1.25) L 09/23/17 08:26 Glucose 254 mg/dL (70-99) H 09/23/17 08:26 POC Glucose 290 (58-89) H 09/22/17 12:29 Hemoglobin A1c 9.4 % (-5.6) H 09/22/17 02:34 Calcium 8.5 mg/dL (8.6-10.8) L 09/23/17 08:26 B-Natriuretic Peptide 114 pg/mL (0-100) H 09/21/17 14:38 - Attending Attestation I examined this patient and my medical decision-making was reviewed with the Resident Physician. I agree with the documented findings, disposition and treatment plan as described except to the extent set forth below. Palliative Quality Code Status: 09/21/17 18:01 CODE [Resuscitation Status: Active] [RES] Routine Comment: Resuscitation Status: Full Code 09/22/17 13:33 Resuscitation Status: Active [RES] Routine Comment: Resuscitation Status: [id number] - Labs CBC & Chem 7: 09/23/17 08:26 09/23/17 08:26 Labs: Laboratory Results - last 24 hr 09/22/17 09/22/17 09/22/17 02:34 12:04 12:29 WBC RBC Hgb Hct MCV MCH MCHC RDW Plt Count MPV Seg Neutrophils % Band Neutrophils % Lymphocytes % Monocytes % Neutrophils # Lymphocytes # Monocytes # Nucleated RBCs/100 WBC Platelet Estimate Immature Plt Fraction Polychromasia Basophilic Stippling Sodium Potassium Chloride Carbon Dioxide BUN Creatinine Est GFR ( Amer) Est GFR (Non-Af Amer) BUN/Creatinine Ratio Glucose POC Glucose 290 H Est Mean Plasma Glucose 223 Hemoglobin A1c 9.4 H Calculated Osmolality Calcium Stool Occult Blood Negative 09/23/17 09/23/17 08:26 08:26 WBC 14.7 H RBC 2.99 L Hgb 9.8 L Hct 32.4 L MCV 108.4 H MCH 32.8 MCHC 30.2 L RDW 22.5 H Plt Count 71 L MPV 12.6 H Seg Neutrophils % 84.0 Band Neutrophils % 2.0 Lymphocytes % 8.0 Monocytes % 6.0 Neutrophils # 12.6 H Lymphocytes # 1.2 Monocytes # 0.9 Nucleated RBCs/100 WBC 1.2 H Platelet Estimate Slight Decrease L Immature Plt Fraction 8.5 H Polychromasia 1+ A Basophilic Stippling 1+ A Sodium 139 Potassium 3.3 L Chloride 99 Carbon Dioxide 29 BUN 13 Creatinine 0.55 L Est GFR ( Amer) > 60 Est GFR (Non-Af Amer) > 60 BUN/Creatinine Ratio 24 Glucose 254 H POC Glucose Est Mean Plasma Glucose Hemoglobin A1c Calculated Osmolality 297 Calcium 8.5 L Stool Occult Blood - Impressions Impressions Echocardiogram 09/22/17 17:58 Impressions: Endocardium not well visualized and an accurate LVEF cannot be determined. Grossly, overall LVEF appears to be normal. Mild segmental left ventricular systolic dysfunction involving the septum. Mild left ventricular diastolic dysfunction. Normal right ventricular structure and function. No evidence of pulmonary hypertension. No significant valvular dysfunction. Recommend a repeat limited study with Definity contrast for better evaluation of LV function. Findings: Study Quality * Technically sub-optimal due to poor echocardiographic windows. ECG Findings * Normal sinus rhythm. Left Ventricle * Endocardium not well visualized and an accurate LVEF cannot be determined. Grossly, overall LVEF appears to be normal. * Mild segmental left ventricular systolic dysfunction involving the septum. * Mild left ventricular diastolic dysfunction. Right Ventricle * Normal right ventricular structure and function. Left Atrium * Normal left atrial size. Right Atrium * Normal right atrial size. Interatrial Septum * Interatrial septum not well evaluated. Aortic Valve * Aortic valve not well visualized. * No aortic regurgitation. * No aortic stenosis. Mitral Valve * Normal mitral valve structure and function. * No mitral regurgitation. * No mitral stenosis. Tricuspid Valve * Normal tricuspid valve structure and function. * Trace tricuspid regurgitation. * No evidence of pulmonary hypertension. Pulmonic Valve * Pulmonic valve is not well visualized. * No pulmonic regurgitation. Aorta * Normally sized aortic root. Pericardium * The pericardium appears normal. IVC * Normal IVC dimensions and inspiratory collapse. Pulmonary Artery * Normal visualized portions of the main pulmonary artery.
[2017-09-23] MEDS: Levofloxacin 750 MG/150 ML 750 MG/150 ML BAG IVPB SCH (12:47)
[2017-09-23] MEDS ORDERED: Naloxone 0.4 MG/ML INJ IVP PRN (15:11)
--- NOTE | 2017-09-23 15:11 | Internal Med Progress Note ---
Date of Encounter: 09/23/17 Time of Encounter: 13:00 - Assessment and plan (1) Pneumonia Current Visit: Yes Status: Suspected Assessment and plan: Community-acquired pneumonia. Continue current antibiotics while we await culture results. If cultures remain negative tomorrow, we will de-escalate antibiotics. Moderate risk for complications. Patient continues to require increased O2 supplementation. This is likely due to underlying lung cancer with superimposed pneumonia. Qualifiers: Pneumonia type: due to Pneumococcus Laterality: right Lung location: middle lobe of lung Qualified Code(s): J13 - Pneumonia due to Streptococcus pneumoniae (2) Acute respiratory failure with hypoxia Current Visit: Yes Status: Acute Assessment and plan: Patient with hypoxia and respiratory failure. Due to lung cancer with superimposed pneumonia. Patient requiring O2 supplementation and will most likely need home oxygen. Currently on high flow nasal cannula at 6 L/m (3) Bilateral lower extremity edema Current Visit: Yes Status: Acute Assessment and plan: Patient with bilateral pedal edema. Improved compared to yesterday. Most likely due to hypoalbuminemia. Will use diuretics as needed. (4) Stage 4 lung cancer Current Visit: Yes Status: Chronic Assessment and plan: Palliative care involved in patient's care. Pain control. Follow up outpatient with oncology. At this time patient wants to continue treatment for his lung cancer. Therefore not a candidate for hospice. Patient does have decreased functional status and would benefit from use of a hospital bed to prevent decubitus ulcers and to help with pain and decrease risk of aspiration. Qualifiers: Laterality: right Qualified Code(s): C34.91 - Malignant neoplasm of unspecified part of right bronchus or lung (5) CAD (coronary artery disease) Current Visit: Yes Status: Chronic Assessment and plan: No chest pain at this time. Continue aspirin, beta elsy and Zocor. Qualifiers: Coronary Disease-Associated Artery/Lesion type: [place] artery [place] vs. transplanted heart: [place] heart Associated angina: without angina Qualified Code(s): I25.10 - Atherosclerotic heart disease of [place] coronary artery without angina pectoris (6) Hypertension Current Visit: Yes Status: Chronic Assessment and plan: Blood pressure is elevated this morning. We will increase lisinopril dosage. Qualifiers: Hypertension type: essential hypertension Qualified Code(s): I10 - Essential (primary) hypertension (7) Hypokalemia Current Visit: Yes Status: Acute Assessment and plan: Stable. Will continue oral supplementation. (8) Diabetes mellitus Current Visit: Yes Status: Acute Assessment and plan: Blood sugars are elevated. We will increase his long-acting insulin coverage. Continue to monitor closely. Qualifiers: Diabetes mellitus type: type 2 Diabetes mellitus complication status: with hyperglycemia Diabetes mellitus group home insulin use: without group home use Qualified Code(s): E11.65 - Type 2 diabetes mellitus with hyperglycemia - Subjective Interval history: Patient is lying in bed. Appears comfortable. Pain currently is not at bedside. No new complaints at this time. Patient does require increased O2 supplementation. No fever or chills reported overnight - Constitutional Vitals: Temp Pulse Resp BP Pulse Ox 97.8 F 71 18 166/95 92 09/23/17 11:22 09/23/17 11:22 09/23/17 11:24 09/23/17 11:22 09/23/17 11:24 General appearance: Present: cooperative, A&O X 3, pleasant, underweight, answers questions appropriately - Neck Neck exam general surgery: Present: supple, trachea midline. Absent: lymphadenopathy - Respiratory Respiratory exam: Present: decreased breath sounds (Both bases). Absent: accessory muscle use, rales, rhonchi, wheezes - Cardiovascular Cardiovascular exam: Present: RRR, +S1, +S2. Absent: diastolic murmur, gallop, rubs, systolic murmur - GI/Abdominal GI/Abdominal exam: Present: normal bowel sounds, soft, no peritoneal signs. Absent: distended, tenderness - Extremities Exam Extremities exam: Present: warm, radial pulses palpable and symmetrical. Absent : calf tenderness, cyanotic, pedal edema - Neurological Exam Neurological exam: Present: alert, oriented X3, no focal deficits. Absent: facial droop, speech deficit Internal Medicine: Result - Labs CBC & Chem 7: 09/23/17 08:26 09/23/17 08:26 Labs: Short CBC 09/23/17 Range/Units 08:26 WBC 14.7 H (4.3-11.1) K/mcL Hgb 9.8 L (12.9-16.9) g/dL Hct 32.4 L (37.5-50.1) % Plt Count 71 L (140-400) K/mcL Neutrophils # 12.6 H (1.6-8.9) K/mcL BMP 09/23/17 08:26 Sodium 139 Potassium 3.3 L Chloride 99 Carbon Dioxide 29 BUN 13 Creatinine 0.55 L Glucose 254 H Calcium 8.5 L Consult Discharge Plan - Plan Referrals: Bud Nunez Jr, MD [Primary Care Provider] -
[2017-09-23] MEDS: Piperacillin/Tazobactam 3.375 GM/200 ML BAG IVPB SCH (15:50)
[2017-09-23] MEDS: Insulin DETEMIR 100 UNIT/ML X5UNITS SQ SCH (21:48)
[2017-09-24] MEDS: Ipratropium/Albuterol Neb 3 ML IH SCH ×4 (00:02→10:52)
[2017-09-24] MEDS: Piperacillin/Tazobactam 3.375 GM/200 ML BAG IVPB SCH ×2 (01:04→08:09)
[2017-09-24 05:13] LABS: Basophils % 0.5 %; Red Blood Count 2.97 M/mcL (4.19-5.50)
[2017-09-24 05:15] LABS: Basophils # 0.1 K/mcL (0.0-0.2); Hematocrit 32.6 % (37.5-50.1); Hemoglobin 9.7 g/dL (12.9-16.9); Immature Granulocytes % 6.8 % (0-4); Immature Platelets 7.8 % (1.1-6.1); Lymphocytes # 1.7 K/mcL (0.6-4.6); Lymphocytes % 11.4 %; Mean Corpuscular HGB Conc 29.8 g/dL (31.6-35.5); Mean Corpuscular Hemoglobin 32.7 pg (28.0-33.3); Mean Corpuscular Volume 109.8 fL (83.0-100.0); Mean Platelet Volume 12.3 fL (9.4-12.4); Monocytes # 0.7 K/mcL (0.0-1.3); Monocytes % 4.4 %; Neutrophils # 11.5 K/mcL (1.6-8.9); Nucleated Red Blood Cells 0.9 /100 WBC (0); Red Cell Distribution Width 22.2 % (11.5-14.5); Segmented Neutrophils % 76.9 %
[2017-09-24 05:17] LABS: Platelet Count 71 K/mcL (140-400)
[2017-09-24] MEDS: *HR* OxyCODONE Immed Rel 15 MG TABLET PO PRN ×3 (05:28→14:04)
[2017-09-24] MEDS: *HR* Enoxaparin 40 MG/0.4 ML SYRINGE SQ SCH (05:29)
[2017-09-24 05:36] LABS: Alanine Aminotransferase 142 Units/L (0-55); Albumin/Globulin Ratio 0.4 (1.1-2.2); Alkaline Phosphatase 480 Units/L (38-126); Aspartate Amino Transferase 126 Units/L (5-34); BUN/Creatinine Ratio 25 (6-26); Bilirubin,Total 2.4 mg/dL (0.2-1.2); Blood Urea Nitrogen 14 mg/dL (8-26); Calcium 8.4 mg/dL (8.6-10.8); Carbon Dioxide 30 mEq/L (19-29); Chloride 100 mEq/L (98-109); Globulin 4.5 g/dL (2.4-3.5); Glucose 198 mg/dL (70-99); Osmolality,Calculated 294 (280-300); Potassium 3.5 mEq/L (3.5-4.5); Sodium 139 mEq/L (136-145); Total Protein 6.3 g/dL (6.0-8.3); eGFR For African Americans > 60 (> 60); eGFR For Non-African Americans > 60 (> 60)
[2017-09-24 05:37] LABS: Albumin 1.8 g/dL (3.5-5.0)
[2017-09-24 06:12] LABS: Anisocytosis 2+ (Not Present); Hypochromasia Present (Not Present); Macrocytosis Present (Not Present); Platelet Estimate Decreased (Normal)
[2017-09-24] MEDS: *HR* Morphine Sulfate SR (12 HR) 30 MG TABLET.ER PO SCH (08:08)
[2017-09-24] MEDS: Aspirin Enteric Coated 81 MG Tablet PO SCH (08:08)
[2017-09-24] MEDS: Insulin LISPRO 300 UNITS/3 ML VIAL SQ SCH ×2 (08:09→12:12)
[2017-09-24] MEDS: Levofloxacin 750 MG/150 ML 750 MG/150 ML BAG IVPB SCH (08:10)
[2017-09-24] MEDS: Multivit/Ca/Min/Fe/FA 1 TAB TABLET PO SCH (08:11)
[2017-09-24] MEDS: Insulin DETEMIR 100 UNIT/ML X5UNITS SQ SCH (08:11)
--- NOTE | 2017-09-24 08:57 | Palliative Progress Note ---
<Madhu Mcarthur - Last Filed: 09/24/17 09:02> Date of Encounter: 09/24/17 Time of Encounter: 08:54 - Assessment and plan (1) Counseling regarding advanced directives and goals of care Current Visit: Yes Status: Acute Assessment and plan: - Family is still considering immunotherapy at [facility] however had questions about hospice care - Options discussed, pt would like to try further treatment with possibility of hospice down the line. - PT/OT consulted for further evaluation for post discharge needs. Will see today, was unable to see yesterday - SW following (2) Cancer associated pain Current Visit: Yes Status: Acute Assessment and plan: - Pt takes oral morphine 30 mg TID ROXANN and oxycodone 15 q3hr PRN at home. - States pain control is much improved today. Increased dosing interval yesterday. - Has used a total of 3 doses since yesterday afternoon. Reports pain in shoulders and low back. - Started bowel regimen with Senna. (3) Community acquired pneumonia Current Visit: Yes Status: Acute Assessment and plan: - Continue treatment as per primary team - Pt denies SOB, nausea, vomiting - Discussed with hospitalist, can likely go home on PO ABx once more medically stable. Qualifiers: Laterality: right Lung location: unspecified part of lung Qualified Code( s): J18.9 - Pneumonia, unspecified organism (4) Stage 4 lung cancer Current Visit: Yes Status: Chronic Assessment and plan: - Plan as above. - Mets to liver per . - Family and pt considering continuing aggressive treatment at this time. - Likely Hospice eligible if desired. Qualifiers: Laterality: right Qualified Code(s): C34.91 - Malignant neoplasm of unspecified part of right bronchus or lung (5) Hypertension Current Visit: Yes Status: Chronic Assessment and plan: Per primary team Qualifiers: Hypertension type: essential hypertension Qualified Code(s): I10 - Essential (primary) hypertension - Time Spent With Patient Total time spent is greater than 50% in coordination of care (as documented) at patient's floor/unit and/or counseling patient: less than 15 minutes - Subjective Interval history: Mr. Verma was seen and examined at bedside. He states he feels about the same as yesterday, possibly a little bit better. He still has a complaint of weakness. He was not able to participate in PT/OT yesterday but plans to participate this morning. His pain, he states, is better today. He has been receiving his medications on time and states that they control his pain well. His SOB is improved as well. At time of interview, pt is sitting up at side of bed eating breakfast without any supplemental O2. BM yesterday morning per pt. No excessive straining. - Constitutional Vitals: Abnormal lab results WBC 14.9 K/mcL (4.3-11.1) H 09/24/17 04:50 RBC 2.97 M/mcL (4.19-5.50) L 09/24/17 04:50 Hgb 9.7 g/dL (12.9-16.9) L 09/24/17 04:50 Hct 32.6 % (37.5-50.1) L 09/24/17 04:50 MCV 109.8 fL (83.0-100.0) H 09/24/17 04:50 MCHC 29.8 g/dL (31.6-35.5) L 09/24/17 04:50 RDW 22.2 % (11.5-14.5) H 09/24/17 04:50 Plt Count 71 K/mcL (140-400) L 09/24/17 04:50 Immature Gran % 6.8 % (0-4) H 09/24/17 04:50 Neutrophils # 11.5 K/mcL (1.6-8.9) H 09/24/17 04:50 Nucleated RBCs/100 WBC 0.9 /100 WBC (0) H 09/24/17 04:50 Platelet Estimate Decreased (Normal) L 09/24/17 04:50 Immature Plt Fraction 7.8 % (1.1-6.1) H 09/24/17 04:50 Polychromasia 1+ (Not Present) A 09/23/17 08:26 Hypochromasia Present (Not Present) A 09/24/17 04:50 Basophilic Stippling 1+ (Not Present) A 09/23/17 08:26 Anisocytosis 2+ (Not Present) A 09/24/17 04:50 Macrocytosis Present (Not Present) A 09/24/17 04:50 Tear Drop Cells 1+ (Not Present) A 09/21/17 14:38 Carbon Dioxide 30 mEq/L (19-29) H 09/24/17 04:50 Creatinine 0.55 mg/dL (0.72-1.25) L 09/24/17 04:50 Glucose 198 mg/dL (70-99) H 09/24/17 04:50 POC Glucose 201 (58-89) H 09/23/17 11:24 Hemoglobin A1c 9.4 % (-5.6) H 09/22/17 02:34 Calcium 8.4 mg/dL (8.6-10.8) L 09/24/17 04:50 Total Bilirubin 2.4 mg/dL (0.2-1.2) H 09/24/17 04:50 AST 126 Units/L (5-34) H 09/24/17 04:50 ALT 142 Units/L (0-55) H 09/24/17 04:50 Alkaline Phosphatase 480 Units/L (38-126) H 09/24/17 04:50 B-Natriuretic Peptide 114 pg/mL (0-100) H 09/21/17 14:38 Albumin 1.8 g/dL (3.5-5.0) L 09/24/17 04:50 Globulin 4.5 g/dL (2.4-3.5) H 09/24/17 04:50 Albumin/Globulin Ratio 0.4 (1.1-2.2) L 09/24/17 04:50 General appearance: Present: average body habitus, cooperative, no acute distress - Respiratory Respiratory exam: Present: decreased breath sounds. Absent: respiratory distress - Cardiovascular Cardiovascular exam: Present: RRR, +S1, +S2 - GI/Abdominal GI/Abdominal exam: Present: soft. Absent: distended, firm, tenderness - Extremities Exam Extremities exam: Present: pedal edema Palliative Quality Palliative Quality: Screen for Code Status: Yes, Screen for Goals of Care: Yes, Screen for Pain: Yes, If Pain Regimen Started, Initiate Bowel Regimen: Yes, Screen for Nausea/Vomitting: Yes Code Status: 09/21/17 18:01 CODE [Resuscitation Status: Active] [RES] Routine Comment: Resuscitation Status: Full Code 09/22/17 13:33 Resuscitation Status: Active [RES] Routine Comment: Resuscitation Status: [id number] - Labs CBC & Chem 7: 09/24/17 04:50 09/24/17 04:50 Labs: Laboratory Results - last 24 hr 09/22/17 09/22/17 09/23/17 16:11 19:54 07:36 WBC RBC Hgb Hct MCV MCH MCHC RDW Plt Count MPV Immature Gran % Seg Neutrophils % Band Neutrophils % Lymphocytes % Monocytes % Eosinophils % Basophils % Neutrophils # Lymphocytes # Monocytes # Eosinophils # Basophils # Nucleated RBCs/100 WBC Platelet Estimate Immature Plt Fraction Polychromasia Hypochromasia Basophilic Stippling Anisocytosis Macrocytosis Sodium Potassium Chloride Carbon Dioxide BUN Creatinine Est GFR ( Amer) Est GFR (Non-Af Amer) BUN/Creatinine Ratio Glucose POC Glucose 243 H 288 H 252 H Calculated Osmolality Calcium Total Bilirubin AST ALT Alkaline Phosphatase Serum Total Protein Albumin Globulin Albumin/Globulin Ratio 09/23/17 09/23/17 09/24/17 08:26 11:24 04:50 WBC 14.9 H RBC 2.97 L Hgb 9.7 L Hct 32.6 L MCV 109.8 H MCH 32.7 MCHC 29.8 L RDW 22.2 H Plt Count 71 L MPV 12.3 Immature Gran % 6.8 H Seg Neutrophils % 84.0 76.9 Band Neutrophils % 2.0 Lymphocytes % 8.0 11.4 Monocytes % 6.0 4.4 Eosinophils % 0.0 Basophils % 0.5 Neutrophils # 12.6 H 11.5 H Lymphocytes # 1.2 1.7 Monocytes # 0.9 0.7 Eosinophils # 0.0 Basophils # 0.1 Nucleated RBCs/100 WBC 0.9 H Platelet Estimate Slight Decrease L Decreased L Immature Plt Fraction 7.8 H Polychromasia 1+ A Hypochromasia Present A Basophilic Stippling 1+ A Anisocytosis 2+ A Macrocytosis Present A Sodium Potassium Chloride Carbon Dioxide BUN Creatinine Est GFR ( Amer) Est GFR (Non-Af Amer) BUN/Creatinine Ratio Glucose POC Glucose 201 H Calculated Osmolality Calcium Total Bilirubin AST ALT Alkaline Phosphatase Serum Total Protein Albumin Globulin Albumin/Globulin Ratio 09/24/17 04:50 WBC RBC Hgb Hct MCV MCH MCHC RDW Plt Count MPV Immature Gran % Seg Neutrophils % Band Neutrophils % Lymphocytes % Monocytes % Eosinophils % Basophils % Neutrophils # Lymphocytes # Monocytes # Eosinophils # Basophils # Nucleated RBCs/100 WBC Platelet Estimate Immature Plt Fraction Polychromasia Hypochromasia Basophilic Stippling Anisocytosis Macrocytosis Sodium 139 Potassium 3.5 Chloride 100 Carbon Dioxide 30 H BUN 14 Creatinine 0.55 L Est GFR ( Amer) > 60 Est GFR (Non-Af Amer) > 60 BUN/Creatinine Ratio 25 Glucose 198 H POC Glucose Calculated Osmolality 294 Calcium 8.4 L Total Bilirubin 2.4 H AST 126 H ALT 142 H Alkaline Phosphatase 480 H Serum Total Protein 6.3 Albumin 1.8 L Globulin 4.5 H Albumin/Globulin Ratio 0.4 L - Impressions Impressions Chest X-Ray 09/23/17 16:16 IMPRESSION: Persistent right lung infiltrate with small right pleural effusion. Underlying mass in the right hilum cannot be excluded. Patient did undergo CT imaging on 06/08/2017 with findings consistent with a right hilar mass. Follow-up chest CT may prove helpful for further assessment. D/ / 09/23/2017 17:18:05 Luciano Dobson MD / demarco Interpreting Provider: Luciano Dobson MD Consult Discharge Plan - Plan Instructions: Acute Respiratory Distress Syndrome (DC), Diabetes Mellitus Type 2 in Adults (DC), Chronic Hypertension (DC), Pneumonia (DC) Referrals: Bud Nunez Jr, MD [Primary Care Provider] - (in 1-2 weeks) Prescriptions: Furosemide [Lasix] 40 mg PO DAILY PRN #30 tablet PRN Reason: leg swelling hydroCHLOROthiazide [Hydrochlorothiazide] 12.5 mg PO DAILY #30 tablet levoFLOXacin [Levofloxacin] 750 mg PO DAILY #10 tablet Lisinopril [Zestril] 20 mg PO DAILY #30 tablet metFORMIN [Glucophage] 850 mg PO BIDWM #60 tablet <Anish Rosales - Last Filed: 09/24/17 13:05> Date of Encounter: 09/24/17 - Time Spent With Patient Total time spent is greater than 50% in coordination of care (as documented) at patient's floor/unit and/or counseling patient: - Constitutional Vitals: Abnormal lab results WBC 14.9 K/mcL (4.3-11.1) H 09/24/17 04:50 RBC 2.97 M/mcL (4.19-5.50) L 09/24/17 04:50 Hgb 9.7 g/dL (12.9-16.9) L 09/24/17 04:50 Hct 32.6 % (37.5-50.1) L 09/24/17 04:50 MCV 109.8 fL (83.0-100.0) H 09/24/17 04:50 MCHC 29.8 g/dL (31.6-35.5) L 09/24/17 04:50 RDW 22.2 % (11.5-14.5) H 09/24/17 04:50 Plt Count 71 K/mcL (140-400) L 09/24/17 04:50 Immature Gran % 6.8 % (0-4) H 09/24/17 04:50 Neutrophils # 11.5 K/mcL (1.6-8.9) H 09/24/17 04:50 Nucleated RBCs/100 WBC 0.9 /100 WBC (0) H 09/24/17 04:50 Platelet Estimate Decreased (Normal) L 09/24/17 04:50 Immature Plt Fraction 7.8 % (1.1-6.1) H 09/24/17 04:50 Polychromasia 1+ (Not Present) A 09/23/17 08:26 Hypochromasia Present (Not Present) A 09/24/17 04:50 Basophilic Stippling 1+ (Not Present) A 09/23/17 08:26 Anisocytosis 2+ (Not Present) A 09/24/17 04:50 Macrocytosis Present (Not Present) A 09/24/17 04:50 Tear Drop Cells 1+ (Not Present) A 09/21/17 14:38 Carbon Dioxide 30 mEq/L (19-29) H 09/24/17 04:50 Creatinine 0.55 mg/dL (0.72-1.25) L 09/24/17 04:50 Glucose 198 mg/dL (70-99) H 09/24/17 04:50 POC Glucose 201 (58-89) H 09/23/17 11:24 Hemoglobin A1c 9.4 % (-5.6) H 09/22/17 02:34 Calcium 8.4 mg/dL (8.6-10.8) L 09/24/17 04:50 Total Bilirubin 2.4 mg/dL (0.2-1.2) H 09/24/17 04:50 AST 126 Units/L (5-34) H 09/24/17 04:50 ALT 142 Units/L (0-55) H 09/24/17 04:50 Alkaline Phosphatase 480 Units/L (38-126) H 09/24/17 04:50 B-Natriuretic Peptide 114 pg/mL (0-100) H 09/21/17 14:38 Albumin 1.8 g/dL (3.5-5.0) L 09/24/17 04:50 Globulin 4.5 g/dL (2.4-3.5) H 09/24/17 04:50 Albumin/Globulin Ratio 0.4 (1.1-2.2) L 09/24/17 04:50 - Attending Attestation I examined this patient and my medical decision-making was reviewed with the Resident Physician. I agree with the documented findings, disposition and treatment plan as described except to the extent set forth below. Palliative Quality Code Status: 09/21/17 18:01 CODE [Resuscitation Status: Active] [RES] Routine Comment: Resuscitation Status: Full Code 09/22/17 13:33 Resuscitation Status: Active [RES] Routine Comment: Resuscitation Status: [id number] - Labs CBC & Chem 7: 09/24/17 04:50 09/24/17 04:50 Labs: Laboratory Results - last 24 hr 09/22/17 09/22/17 09/23/17 16:11 19:54 07:36 WBC RBC Hgb Hct MCV MCH MCHC RDW Plt Count MPV Immature Gran % Seg Neutrophils % Lymphocytes % Monocytes % Eosinophils % Basophils % Neutrophils # Lymphocytes # Monocytes # Eosinophils # Basophils # Nucleated RBCs/100 WBC Platelet Estimate Immature Plt Fraction Hypochromasia Anisocytosis Macrocytosis Sodium Potassium Chloride Carbon Dioxide BUN Creatinine Est GFR ( Amer) Est GFR (Non-Af Amer) BUN/Creatinine Ratio Glucose POC Glucose 243 H 288 H 252 H Calculated Osmolality Calcium Total Bilirubin AST ALT Alkaline Phosphatase Serum Total Protein Albumin Globulin Albumin/Globulin Ratio 09/23/17 09/24/17 09/24/17 11:24 04:50 04:50 WBC 14.9 H RBC 2.97 L Hgb 9.7 L Hct 32.6 L MCV 109.8 H MCH 32.7 MCHC 29.8 L RDW 22.2 H Plt Count 71 L MPV 12.3 Immature Gran % 6.8 H Seg Neutrophils % 76.9 Lymphocytes % 11.4 Monocytes % 4.4 Eosinophils % 0.0 Basophils % 0.5 Neutrophils # 11.5 H Lymphocytes # 1.7 Monocytes # 0.7 Eosinophils # 0.0 Basophils # 0.1 Nucleated RBCs/100 WBC 0.9 H Platelet Estimate Decreased L Immature Plt Fraction 7.8 H Hypochromasia Present A Anisocytosis 2+ A Macrocytosis Present A Sodium 139 Potassium 3.5 Chloride 100 Carbon Dioxide 30 H BUN 14 Creatinine 0.55 L Est GFR ( Amer) > 60 Est GFR (Non-Af Amer) > 60 BUN/Creatinine Ratio 25 Glucose 198 H POC Glucose 201 H Calculated Osmolality 294 Calcium 8.4 L Total Bilirubin 2.4 H AST 126 H ALT 142 H Alkaline Phosphatase 480 H Serum Total Protein 6.3 Albumin 1.8 L Globulin 4.5 H Albumin/Globulin Ratio 0.4 L - Impressions Impressions Chest X-Ray 09/23/17 16:16 IMPRESSION: Persistent right lung infiltrate with small right pleural effusion. Underlying mass in the right hilum cannot be excluded. Patient did undergo CT imaging on 06/08/2017 with findings consistent with a right hilar mass. Follow-up chest CT may prove helpful for further assessment. D/ /23/2017 17:18:05 Luciano Dobson MD / demarco Interpreting Provider: Luciano Dobson MD
[2017-09-24] MEDS ORDERED: Lisinopril 20 MG TABLET PO SCH (09:00)
[2017-09-24] MEDS ORDERED: Sennosides/Docusate Sodium TABLET PO SCH (09:00)
[2017-09-24] MEDS ORDERED: hydroCHLOROthiazide 25 MG TABLET PO SCH (09:00)
[2017-09-24 11:18] VITALS: BP 174/102
--- NOTE | 2017-09-24 11:29 | Discharge Summary ---
Date of Encounter: 09/24/17 Time of Encounter: 10:45 - Discharge Diagnosis (1) Pneumonia Priority: Primary Status: Acute Qualifiers: Pneumonia type: due to unspecified organism Laterality: right Lung location: middle lobe of lung Qualified Code(s): J18.1 - Lobar pneumonia, unspecified organism (2) Acute respiratory failure with hypoxia Priority: Secondary Status: Acute (3) Bilateral lower extremity edema Priority: Secondary Status: Acute (4) Stage 4 lung cancer Priority: Secondary Status: Chronic Qualifiers: Laterality: right Qualified Code(s): C34.91 - Malignant neoplasm of unspecified part of right bronchus or lung (5) CAD (coronary artery disease) Priority: Secondary Status: Chronic Qualifiers: Coronary Disease-Associated Artery/Lesion type: [place] artery [place] vs. transplanted heart: [place] heart Associated angina: without angina Qualified Code(s): I25.10 - Atherosclerotic heart disease of [place] coronary artery without angina pectoris (6) Hypertension Priority: Secondary Status: Chronic Qualifiers: Hypertension type: essential hypertension Qualified Code(s): I10 - Essential (primary) hypertension (7) Hypokalemia Priority: Secondary Status: Acute (8) Diabetes mellitus Priority: Secondary Status: Acute Qualifiers: Diabetes mellitus type: type 2 Diabetes mellitus complication status: with hyperglycemia Diabetes mellitus terminal make up operator insulin use: without chcf use Qualified Code(s): E11.65 - Type 2 diabetes mellitus with hyperglycemia - Discharge Medications Prescriptions: Furosemide [Lasix] 40 mg PO DAILY PRN #30 tablet PRN Reason: leg swelling hydroCHLOROthiazide [Hydrochlorothiazide] 12.5 mg PO DAILY #30 tablet levoFLOXacin [Levofloxacin] 750 mg PO DAILY #10 tablet Lisinopril [Zestril] 20 mg PO DAILY #30 tablet metFORMIN [Glucophage] 850 mg PO BIDWM #60 tablet Home Medications: Alprazolam [Alprazolam Xr] 0.5 mg PO Q4HR PRN 06/08/17 [History] Aspirin [Lo-Dose Aspirin EC] 81 mg PO DAILY 06/08/17 [History] Carvedilol 12.5 mg PO BID 06/08/17 [History] Cyclobenzaprine [Flexeril] 10 mg PO BID 06/08/17 [History] Morphine Sulfate [Arymo ER] 30 mg PO TID 06/08/17 [History] Multivitamin [One Daily Essential] 1 tab PO DAILY 06/08/17 [History] Nabumetone 750 mg PO BID 06/08/17 [History] OxyCODONE Immed Rel [Roxicodone 15 MG] 15 mg PO Q3H PRN 06/08/17 [History] Simvastatin [Zocor] 40 mg PO HS 06/08/17 [History] Furosemide [Lasix] 40 mg PO DAILY PRN #30 tablet 09/24/17 [Rx] Lisinopril [Zestril] 20 mg PO DAILY #30 tablet 09/24/17 [Rx] hydroCHLOROthiazide [Hydrochlorothiazide] 12.5 mg PO DAILY #30 tablet 09/24/17 [ Rx] levoFLOXacin [Levofloxacin] 750 mg PO DAILY #10 tablet 09/24/17 [Rx] metFORMIN [Glucophage] 850 mg PO BIDWM #60 tablet 09/24/17 [Rx] Allergies/Adverse Reactions: 3 Allergy/AdvReac Type Severity Reaction Status Date / Time ceftriaxone [From Rocephin] Allergy Hives Verified 06/08/17 21:10 codeine Allergy Hives Verified 06/08/17 21:10 Procedures/tests Complete & Pending: Procedures Performed prior 72 hours Category Date Time Status EV echocardiogram Routine Y 09/22/17 17:58 Completed EV venous imaging LE BI Routine Y 09/22/17 17:57 Completed Date of admission: 09/21/17 16:18 Primary care physician: Bud Nunez Jr, MD Consults: 09/21/17 17:53 Consult to Nurse Navigator [CONS] Routine Comment: 09/21/17 20:43 Consult to Nutrition [CONS] Routine Comment: Consulting Provider: NUTRITION Reason for Dietary Consult: Diet Education Consult to Early Childhood Education Worker [CONS] Routine Reason for SW Consult: Home health consult 09/22/17 13:00 Consult to Palliative Care [CONS] Routine Comment: Consulting Provider: Palliative Care Barbara Reason for Consult: CHANGE CODE STATUS PATIENT HAS STAGE 4 LUNG CANCER Call Completed: No 09/23/17 11:26 Consult to Occupational Therapy [CONS] Stat Comment: Evaluate, develop and implement POC Reason for Consult: weakness Consult to Physical Therapy [CONS] Stat Comment: Evaluate, develop and implement POC Reason for Consult: weakness Discharging clinician: Noel Washburn Anticipated date of discharge: 09/24/17 - Patient Status Disposition: Home Health Service Condition: Fair Functional capacity at discharge: uses cane/walker Overall status at discharge: patient is progressing back to baseline - Discharge Instructions Instructions: Methyldopa/Hydrochlorothiazide (By mouth), Lisinopril (By mouth) , Furosemide (By mouth), Metformin (By mouth), Levofloxacin (By mouth), Acute Respiratory Distress Syndrome (DC), Diabetes Mellitus Type 2 in Adults (DC), Chronic Hypertension (DC), Pneumonia (DC) Follow Up With: Bud Nunez Jr, MD [Primary Care Provider] - (aPPOINTMENT REQUESTED) - Diet and Activity Activity: wear oxygen at all times Diet: diabetic diet, low fat, low cholesterol, low salt diet Hospital course: Mr. Verma is a 56 year old male patient with history of stage IV lung cancer , coronary artery disease, hypertension who presented to the ER with complaints of shortness of breath and cough. He was diagnosed with community-acquired pneumonia and was started on IV antibiotics. He was started on broad-spectrum antibiotics mainly due to his underlying lung cancer. Patient's symptoms have improved with this treatment plan. His cultures have so far been negative. Patient does remain hypoxic and he due to his underlying lung cancer with superimposed pneumonia and would benefit from home oxygen. This will be arranged for him at time of discharge. Patient also has bilateral pedal edema most likely due to hypoalbuminemia. He can be treated with Lasix as needed for symptom control. Patient's blood pressure has been elevated here and his lisinopril dosage has been increased. Patient has also been diagnosed with diabetes. She is being started on metformin for this. At this time, patient is clinically stable for discharge home on oral levofloxacin to complete treatment course for his pneumonia. Palliative care was also involved in his care here and at this time patient does not wish to be on hospice as he we will continue to receive therapy for his cancer. Patient has been provided with prescription for a hospital bed and 3 in 1 bedside commode to help with his care at home and to minimize risk of aspiration and injury due to his underlying lung cancer and generalized weakness. - Time Spent with Patient Total time spent providing and/or coordinating discharge services: Greater than 30 minutes (45 min) - Constitutional Vitals: Temp Pulse Resp BP Pulse Ox 96.8 F L 76 16 174/102 93 09/24/17 11:12 09/24/17 11:12 09/24/17 11:12 09/24/17 11:12 09/24/17 11:12 General appearance: Present: cooperative, A&O X 3, pleasant, underweight, answers questions appropriately - Neck Neck exam general surgery: Present: supple, trachea midline. Absent: lymphadenopathy - Respiratory Respiratory exam: Present: decreased breath sounds (at bases). Absent: accessory muscle use, rales, rhonchi, wheezes - Cardiovascular Cardiovascular exam: Present: RRR, +S1, +S2. Absent: diastolic murmur, gallop, rubs, systolic murmur - Extremities Exam Extremities exam: Present: warm, radial pulses palpable and symmetrical. Absent : calf tenderness, cyanotic, pedal edema - Neurological Exam Neurological exam: Present: CN II-XII intact, oriented X3, no focal deficits. Absent: pronater drift, facial droop, speech deficit - Skin Skin exam: Present: dry, intact
--- NOTE | 2017-09-24 11:33 | Physician Discharge Referral ---
Home Health/Hosp Referral Info Transfer to: Home Health Provider in Charge Post Discharge: PCP - Diagnosis (1) Pneumonia Priority: Primary Status: Acute (2) Acute respiratory failure with hypoxia Priority: Secondary Status: Acute (3) Bilateral lower extremity edema Priority: Secondary Status: Acute (4) Stage 4 lung cancer Priority: Secondary Status: Chronic (5) CAD (coronary artery disease) Priority: Secondary Status: Chronic (6) Hypertension Priority: Secondary Status: Chronic (7) Hypokalemia Priority: Secondary Status: Acute (8) Diabetes mellitus Priority: Secondary Status: Acute - Respiratory Orders Oxygen / L per min (3-4) Smoking Cessation: Smoking cessation has been advised. For more information, call the [place] Tobacco Quit Line at 9-989-FKKD-NOW. - Diet/Nutrition Diet/Nutrition Orders: Cardiac, No Concentrated Sweets (diabetic) - Activity Activity Orders: Walker - Services Needed Following services are medically necessary services: Nursing, Home Health Aide, Physical Therapy, Occupational Therapy, Med Social Work - Transfer Medications Prescriptions: Furosemide [Lasix] 40 mg PO DAILY PRN #30 tablet PRN Reason: leg swelling hydroCHLOROthiazide [Hydrochlorothiazide] 12.5 mg PO DAILY #30 tablet levoFLOXacin [Levofloxacin] 750 mg PO DAILY #10 tablet Lisinopril [Zestril] 20 mg PO DAILY #30 tablet metFORMIN [Glucophage] 850 mg PO BIDWM #60 tablet Home Medications: Alprazolam [Alprazolam Xr] 0.5 mg PO Q4HR PRN 06/08/17 [History] Aspirin [Lo-Dose Aspirin EC] 81 mg PO DAILY 06/08/17 [History] Carvedilol 12.5 mg PO BID 06/08/17 [History] Cyclobenzaprine [Flexeril] 10 mg PO BID 06/08/17 [History] Morphine Sulfate [Arymo ER] 30 mg PO TID 06/08/17 [History] Multivitamin [One Daily Essential] 1 tab PO DAILY 06/08/17 [History] Nabumetone 750 mg PO BID 06/08/17 [History] OxyCODONE Immed Rel [Roxicodone 15 MG] 15 mg PO Q3H PRN 06/08/17 [History] Simvastatin [Zocor] 40 mg PO HS 06/08/17 [History] Furosemide [Lasix] 40 mg PO DAILY PRN #30 tablet 09/24/17 [Rx] Lisinopril [Zestril] 20 mg PO DAILY #30 tablet 09/24/17 [Rx] hydroCHLOROthiazide [Hydrochlorothiazide] 12.5 mg PO DAILY #30 tablet 09/24/17 [ Rx] levoFLOXacin [Levofloxacin] 750 mg PO DAILY #10 tablet 09/24/17 [Rx] metFORMIN [Glucophage] 850 mg PO BIDWM #60 tablet 09/24/17 [Rx] Allergies/Adverse Reactions: 3 Allergy/AdvReac Type Severity Reaction Status Date / Time ceftriaxone [From Rocephin] Allergy Hives Verified 06/08/17 21:10 codeine Allergy Hives Verified 06/08/17 21:10 Certification: Further, I certify that my clinical findings support that this patient is homebound (i.e. absences from home require considerable and taxing effort and are for medical reasons or cheondoism services or infrequently or short duration when for other reasons) because: Homebound Reason: Patient requires assistance of a person or device to safely leave home, Severity of cardiac or pulmonary status limits activity tolerance Attestation: My signature below is to certify that this patient is under my care and that I, or nurse practitioner, or a physician's benefits assistant working with me, has a face-to -face encounter with this patient.
--- NOTE | 2017-09-26 08:32 | Event Note ---
Date of Encounter: 09/26/17 Time of Encounter: 08:30 Sputum culture positive for E. Coli MDRO. Called patient and spoke with his regarding this. Gave her options of coming in to set up home IV antibiotics vs continuing current plan of care as he is considering hospice. She will discuss with family and let us know.
--- NOTE | 2017-09-28 12:43 | Event Note ---
Date of Encounter: 09/28/17 Time of Encounter: 12:42 Multiple attempts have been made for both myself and discharging provider to contact patient and family to inform them of results of blood cultures and need to come in for IV antibiotic therapy. There is been no response to her messages from family at this time
== END 2017-09-24 14:10 | disposition home health service (06) | DRG 193 ==
LOC: EMEROO 14:06 → 2NENU 16:18 → SUATTDRO 16:18 → 2NENU 18:42
PROVIDERS: ADMIT Hospitalist; ATTEND Internal Medicine